=== PATIENT | male | born 1965 | race Caucasian/White ===

== ENCOUNTER 2017-02-28 16:09 | Inpatient (IN) | payer SELFPAY ==
[~2017-02-28] VITALS: Ht 175.3 cm; Wt 116.8 kg
[2017-02-28 16:41] LABS: HEMOGLOBIN 14.1 g/dL (13.5-18.0); MEAN CELL VOLUME 89 fl (78-100); MEAN CORPUSCULAR HEMOGLOBIN 28 pg (27-31); MEAN CORPUSCULAR HGB CONC 32 g/dL (33-37); MEAN PLATELET VOLUME 9.1 fl (7.4-10.4); PLATELET COUNT 373 K/mm3 (130-400); RED BLOOD COUNT 4.96 M/mm3 (4.20-5.60); RED CELL DISTRIBUTION WIDTH 14.7 % (11.5-14.5); WHITE BLOOD COUNT 10.6 K/mm3 (4.8-10.8)
[2017-02-28 17:02] LABS: ALBUMIN 3.7 g/dL (3.5-5.0); BUN/CREATININE RATIO 18.6 (6.0-26.0); CALCIUM 9.6 mg/dL (8.4-10.2); POTASSIUM 4.1 mmol/L (3.6-5.0); TOTAL BILIRUBIN 0.7 mg/dL (0.2-1.3)
[2017-02-28 19:30] VITALS: BP 141/80
[2017-02-28 19:49] VITALS: BP 141/80
[2017-02-28 20:04] VITALS: BP 127/100
[2017-02-28 20:54] LABS: BAND 1 % (0-10); LYMPHOCYTE 20 % (20-51); MONOCYTE 13 % (3-10); NEUTROPHILS 65 % (42-75)
[2017-02-28 23:20] VITALS: BP 148/100
[2017-03-01 03:29] VITALS: BP 159/114
[2017-03-01 06:48] VITALS: BP 160/75
[2017-03-01 07:08] LABS: HEMATOCRIT 42.3 % (42.0-52.0); HEMOGLOBIN 13.6 g/dL (13.5-18.0); MEAN CELL VOLUME 90 fl (78-100); MEAN CORPUSCULAR HEMOGLOBIN 29 pg (27-31); MEAN CORPUSCULAR HGB CONC 32 g/dL (33-37); MEAN PLATELET VOLUME 9.2 fl (7.4-10.4); PLATELET COUNT 383 K/mm3 (130-400); RED BLOOD COUNT 4.72 M/mm3 (4.20-5.60); RED CELL DISTRIBUTION WIDTH 14.9 % (11.5-14.5)
[2017-03-01 07:25] LABS: BAND 1 % (0-10); LYMPHOCYTE 23 % (20-51); MONOCYTE 14 % (3-10); NEUTROPHILS 61 % (42-75)
[2017-03-01 07:26] LABS: ALBUMIN 3.5 g/dL (3.5-5.0); BUN/CREATININE RATIO 17.3 (6.0-26.0); CALCIUM 9.2 mg/dL (8.4-10.2); POTASSIUM 4.1 mmol/L (3.6-5.0); TOTAL BILIRUBIN 0.8 mg/dL (0.2-1.3); TOTAL PROTEIN 7.5 g/dL (6.3-8.2)
[2017-03-01 10:52] VITALS: BP 151/97
[2017-03-01 15:03] VITALS: BP 155/108
[2017-03-01 17:57] VITALS: BP 142/94
[2017-03-01 23:20] VITALS: BP 152/96
[2017-03-02] VITALS (7 sets, daily range): BP systolic 145–165; BP diastolic 77–106
[2017-03-02 08:05] LABS: EOS % 0.1 % (0.0-4.0); HEMATOCRIT 41.6 % (42.0-52.0); HEMOGLOBIN 13.7 g/dL (13.5-18.0); LYMPH# 1.7 (1.50-4.00); MEAN CELL VOLUME 89 fl (78-100); MEAN CORPUSCULAR HEMOGLOBIN 29 pg (27-31); MEAN CORPUSCULAR HGB CONC 33 g/dL (33-37); MEAN PLATELET VOLUME 9.1 fl (7.4-10.4); MONO # 0.7 (0.20-0.80); PLATELET COUNT 474 K/mm3 (130-400); RED BLOOD COUNT 4.68 M/mm3 (4.20-5.60); RED CELL DISTRIBUTION WIDTH 14.8 % (11.5-14.5); WHITE BLOOD COUNT 12.3 K/mm3 (4.8-10.8)
[2017-03-02 08:21] LABS: NEU # 9.2 (1.40-6.50)
[2017-03-03] VITALS (7 sets, daily range): BP systolic 136–176; BP diastolic 90–112
[2017-03-03 14:02] LABS: URINE APPEARANCE HAZY; URINE BILIRUBIN NEGATIVE (NEGATIVE); URINE BLOOD TRACE (NEGATIVE); URINE COLOR YELLOW; URINE GLUCOSE NEGATIVE (NEGATIVE); URINE KETONE NEGATIVE (NEGATIVE); URINE LEUKOCYTE ESTERASE NEGATIVE (NEGATIVE); URINE MUCUS PRESENT (NOT PRESENT); URINE NITRATE NEGATIVE (NEGATIVE); URINE PROTEIN(semi-quant) TRACE mg/dL (NEGATIVE); URINE UROBILINOGEN NORMAL (NORMAL)
[2017-03-04 03:10] VITALS: BP 153/102
[2017-03-04 06:45] VITALS: BP 140/107
[2017-03-04 11:37] VITALS: BP 153/109
[2017-03-04 11:41] LABS: HEMATOCRIT 44.4 % (42.0-52.0); HEMOGLOBIN 14.1 g/dL (13.5-18.0); MEAN CELL VOLUME 91 fl (78-100); MEAN CORPUSCULAR HEMOGLOBIN 29 pg (27-31); MEAN CORPUSCULAR HGB CONC 32 g/dL (33-37); RED CELL DISTRIBUTION WIDTH 15.1 % (11.5-14.5); WHITE BLOOD COUNT 14.8 K/mm3 (4.8-10.8)
[2017-03-04 11:48] LABS: BUN/CREATININE RATIO 24.8 (6.0-26.0); CALCIUM 9.6 mg/dL (8.4-10.2); POTASSIUM 4.6 mmol/L (3.6-5.0)
[2017-03-04 12:06] LABS: MONO # 1.6 (0.20-0.80); NEU # 10.8 (1.40-6.50); PLATELET COUNT 581 K/mm3 (130-400)
[2017-03-04 15:01] VITALS: BP 154/97; BP 54/97
[2017-03-04 17:55] VITALS: BP 165/105
[2017-03-04 22:47] VITALS: BP 163/85
[2017-03-05 03:05] VITALS: BP 138/97
[2017-03-05 06:20] VITALS: BP 138/92
[2017-03-05 11:11] VITALS: BP 146/99
[2017-03-05 15:40] VITALS: BP 146/92
[2017-03-05 18:16] VITALS: BP 137/75
[2017-03-05 23:00] VITALS: BP 140/90
[2017-03-06 02:58] VITALS: BP 148/114
[2017-03-06 03:05] VITALS: BP 147/102
[2017-03-06 06:20] VITALS: BP 140/101
[2017-03-06 11:37] VITALS: BP 133/92
[2017-03-06 15:08] VITALS: BP 134/99
[2017-03-06] MEDS ORDERED: AMOXICILLIN AND1 TA2 PO (15:10)
[2017-03-06] MEDS ORDERED: IPRATROPIUM BROM3 M1 IH (15:11)
[2017-03-06] MEDS ORDERED: TOPROL XL 50MG50 MG PO (15:11)
[2017-03-06] MEDS ORDERED: LISINOPRIL20 MG PO (15:12)
[2017-03-06] MEDS ORDERED: PROAIR HFA0.09 MG/AC IH (15:15)
[2017-03-06] MEDS ORDERED: PREDNISONE20 MG PO (15:15)
[2017-03-06] MEDS ORDERED: AEROSOL THERAPY1 DEV INH (15:17)
== END 2017-03-06 15:40 | disposition home or self-care (01) | DRG 195 ==
LOC: ED 16:09 → MED/SURG 19:10
PROVIDERS: Family Medicine; Nurse Practitioner Primary Care; Physician Assistant; ADMIT Physician Assistant
DX: J18.9 Pneumonia, unspecified organism (principal); I10 Essential (primary) hypertension; R09.02 Hypoxemia; F17.210 Nicotine dependence, cigarettes, uncomplicated
CPT/HCPCS: J1650; J2543; J2930; J7030; J7512

== ENCOUNTER → 2019-06-30 | Outpatient (CLI) | payer SELFPAY ==
[~2019-06-30] MED LIST: AEROSOL THERAPY1 DEV INH; AMOXICILLIN AND1 TA2 PO; IPRATROPIUM BROM3 M1 IH; LISINOPRIL20 MG PO; PREDNISONE20 MG PO; PROAIR HFA0.09 MG/AC IH; TOPROL XL 50MG50 MG PO
== END ==
LOC: RAD 12:05
DX: M17.11 Unilateral primary osteoarthritis, right knee (principal)

== ENCOUNTER → 2021-11-08 | Outpatient (CLI) | payer MEDICAID ==
[2021-11-08 13:54] LABS: ALBUMIN 4.1 g/dL (3.5-5.0); POTASSIUM 4.5 mmol/L (3.5-5.1)
[2021-11-08 13:55] LABS: CALCIUM 9.7 mg/dL (8.3-10.5)
[2021-11-08 13:57] LABS: TOTAL PROTEIN 7.6 g/dL (6.4-8.3)
[2021-11-08 13:58] LABS: TOTAL BILIRUBIN 0.3 mg/dL (0.2-1.2)
[2021-11-08 14:24] LABS: BASO # 0.06 K/mm3 (0.02-0.10); EOS # 0.19 K/mm3 (0.04-0.40); EOS % 2.1 % (0.0-4.0); HEMATOCRIT 44.1 % (42.0-52.0); HEMOGLOBIN 13.7 g/dL (13.5-18.0); LYMPH# 1.47 K/mm3 (1.50-4.00); MEAN CELL VOLUME 99 fl (78-100); MEAN CORPUSCULAR HEMOGLOBIN 31 pg (27-31); MEAN CORPUSCULAR HGB CONC 31 g/dL (33-37); MEAN PLATELET VOLUME 9.1 fl (7.4-10.4); NEU # 6.67 K/mm3 (1.40-6.50); PLATELET COUNT 352 K/mm3 (130-400); RED BLOOD COUNT 4.47 M/mm3 (4.20-5.60); RED CELL DISTRIBUTION WIDTH 14.7 % (11.5-14.5); WHITE BLOOD COUNT 9.2 K/mm3 (4.8-10.8)
== END ==
LOC: LAB 13:31
PROVIDERS: Family Medicine
DX: Z00.00 Encounter for general adult medical examination without abnormal findings (principal); I10 Essential (primary) hypertension; E78.5 Hyperlipidemia, unspecified; M19.90 Unspecified osteoarthritis, unspecified site; E66.9 Obesity, unspecified; Z72.0 Tobacco use

== ENCOUNTER 2023-03-21 12:12 | Emergency (ER) | payer MEDICAID ==
[~2023-03-21] VITALS: Ht 167.6 cm; Wt 116.8 kg
[2023-03-21 12:39] LABS: HEMATOCRIT 39.8 % (42.0-52.0); HEMOGLOBIN 12.9 g/dL (13.5-18.0); MEAN CELL VOLUME 95 fl (78-100); MEAN CORPUSCULAR HEMOGLOBIN 31 pg (27-31); MEAN CORPUSCULAR HGB CONC 32 g/dL (33-37); PLATELET COUNT 472 K/mm3 (130-400); RED BLOOD COUNT 4.17 M/mm3 (4.20-5.60); WHITE BLOOD COUNT 18.3 K/mm3 (4.8-10.8)
[2023-03-21 12:48] LABS: ALBUMIN 3.9 g/dL (3.5-5.0)
[2023-03-21 12:50] LABS: CALCIUM 10.3 mg/dL (8.3-10.5)
[2023-03-21] MEDS ORDERED: ATORVASTATIN CA20 MG PO (12:50)
[2023-03-21] MEDS ORDERED: AMLODIPINE BES2.5 MG PO (12:50)
[2023-03-21 12:51] LABS: TOTAL PROTEIN 7.9 g/dL (6.4-8.3)
[2023-03-21] MEDS ORDERED: HYDROCHLOROTHIA1 T15 PO (12:51)
[2023-03-21] MEDS ORDERED: LOPRESSOR 225 MG/TAB PO (12:51)
[2023-03-21 12:53] LABS: TOTAL BILIRUBIN 0.5 mg/dL (0.2-1.2)
[2023-03-21 13:09] LABS: LYMPHOCYTE 7 % (20-51); MONOCYTE 11 % (3-10); NEUTROPHILS 82 % (42-75)
[2023-03-21 16:00] VITALS: BP 110/84
== END 2023-03-21 16:30 | disposition short-term general hospital (02) ==
LOC: ED 12:12
PROVIDERS: Nurse Practitioner
DX: A41.9 Sepsis, unspecified organism (principal); S81.802A Unspecified open wound, left lower leg, initial encounter; S81.801A Unspecified open wound, right lower leg, initial encounter; L03.116 Cellulitis of left lower limb; L03.115 Cellulitis of right lower limb; I87.2 Venous insufficiency (chronic) (peripheral); E66.01 Morbid (severe) obesity due to excess calories; F17.210 Nicotine dependence, cigarettes, uncomplicated; Z68.41 Body mass index [BMI] 40.0-44.9, adult; X58.XXXA Exposure to other specified factors, initial encounter
CPT/HCPCS: J0692; J7030

== ENCOUNTER 2023-04-11 10:04 | Outpatient (RCR) | payer MEDICAID ==
[~2023-04-11 10:04] MED LIST changes: +AMLODIPINE BES2.5 MG PO; +ATORVASTATIN CA20 MG PO; +HYDROCHLOROTHIA1 T15 PO; +LOPRESSOR 225 MG/TAB PO
== END 2023-04-11 17:00 | disposition still patient (30) ==
LOC: PT 10:04
DX: L03.115 Cellulitis of right lower limb (principal); L03.116 Cellulitis of left lower limb

== ENCOUNTER → 2023-04-16 | Outpatient (CLI) | payer MEDICAID ==
[2023-04-16 17:39] LABS: BASO # 0.03 K/mm3 (0.02-0.10); EOS # 0.16 K/mm3 (0.04-0.40); EOS % 1.6 % (0.0-4.0); HEMATOCRIT 39.6 % (42.0-52.0); HEMOGLOBIN 12.2 g/dL (13.5-18.0); LYMPH# 1.66 K/mm3 (1.50-4.00); MEAN CELL VOLUME 96 fl (78-100); MEAN CORPUSCULAR HEMOGLOBIN 30 pg (27-31); MEAN CORPUSCULAR HGB CONC 31 g/dL (33-37); MEAN PLATELET VOLUME 8.4 fl (7.4-10.4); MONO # 0.85 K/mm3 (0.20-0.80); NEU # 7.47 K/mm3 (1.40-6.50); PLATELET COUNT 403 K/mm3 (130-400); RED BLOOD COUNT 4.13 M/mm3 (4.20-5.60); RED CELL DISTRIBUTION WIDTH 14.6 % (11.5-14.5); WHITE BLOOD COUNT 10.2 K/mm3 (4.8-10.8)
[2023-04-16 17:42] LABS: ALBUMIN 3.7 g/dL (3.5-5.0)
[2023-04-16 17:44] LABS: CALCIUM 9.6 mg/dL (8.3-10.5)
[2023-04-16 17:45] LABS: TOTAL PROTEIN 7.5 g/dL (6.4-8.3)
[2023-04-16 17:47] LABS: TOTAL BILIRUBIN 0.3 mg/dL (0.2-1.2)
== END ==
LOC: LAB 17:25
PROVIDERS: Nurse Practitioner
DX: I73.9 Peripheral vascular disease, unspecified (principal)